=== PATIENT | male | born 1970 | race Caucasian/White ===

== ENCOUNTER 2020-05-09 00:24 | Emergency (ER) | payer SELFPAY ==
[2020-05-09] MEDS ORDERED: Acetaminophen 500 MG Tab PO ONE ×2 (00:58→03:50)
[2020-05-09] MEDS ORDERED: Bupivacaine 0.5% 10 ML SDV INJECT ONE (01:18)
[2020-05-09] MEDS ORDERED: Lactated Ringers 1,000 ML IV SCH (01:30)
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
[2020-05-09] MEDS ORDERED: Octyl 2-Cyanoacrylate 1 Tube ONE (03:23)
[2020-05-09] MEDS ORDERED: Octyl 2-Cyanoacrylate 1 Tube TOP ONE (03:23)
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
== END 2020-05-09 04:02 | disposition home or self-care (01) ==
LOC: MW.ED 00:24
DX: S01.81XA Laceration without foreign body of other part of head, initial encounter (principal); Z88.6 Allergy status to analgesic agent; Y04.0XXA Assault by unarmed brawl or fight, initial encounter
CPT/HCPCS: 12011; 70450; 70486; 72125; 99284; A9270; J3490; 99282